=== PATIENT | male | born 1960 | race Caucasian/White ===

== ENCOUNTER → 2018-01-01 | Day surgery (SDC) | payer OTHER ==
[~2018-01-01] VITALS: Ht 188 cm; Wt 101.7 kg
[~2018-01-01] MED LIST: ACETAMINOPHEN 1000 MG/100 ML 100 ML IV SCH; AMLO10 PO; ASPI1TAB57 PO; BACITRACIN TOP OINT 15 GM TUBE ONE; BUPIVACAINE/EPINEPHRINE 0.5% PF 30 ML VIAL ONE; CARV12.5 PO; CHLORHEXIDINE GLUCONATE 2 % 1 PACK (2 CLOTHS) TOPICAL PRN; DEXAMETHASONE SOD PHOS 4 MG/ML VIAL IV ONE; DO NOT ADM ANY ANTICOAGULANT DRUGS PRN; GLYCOPYRROLATE 1 MG/5 ML SYRINGE IV PUSH ONE; INSULIN HUMAN REGULAR 1,000 UNITS/10 ML VIAL SQ PRN; KETOROLAC TROMETHAMINE 30 MG/ML (IVP) VIAL IV PUSH ONE; KETOROLAC TROMETHAMINE 30 MG/ML (IVP) VIAL ONE; LACTATED RINGER'S 1000 ML IV PRN; LIDOCAINE 1%/EPINEPHrine 1:100,000 SOLN 20 ML VIAL ONE; LIDOCAINE HCL 1% PF 5 ML SYRINGE OTHER ONE; MEPERIDINE HCL 50 MG/ML VIAL ONE; METOPROLOL TARTRATE 25 MG TAB PO PRN; MIDAZOLAM HCL 2 MG/2 ML VIAL ONE; MORPHINE SULFATE 4 MG/ML INJ IV PUSH PRN; NEOSTIGMINE 5 MG/5 ML SYRINGE IV PUSH ONE; ONDANSETRON HCL 4 MG/2 ML VIAL IV PUSH ONE; ONDANSETRON HCL 4 MG/2 ML VIAL IV PUSH PRN; POVIDONE IODINE 5% (ANTISEPSIS KIT) 4 APPLICATIONS EACH NARE PRN; PROPOFOL 200 MG/20 ML AMP IV ONE; PROPOFOL 500 MG/50 ML INJ 50 ML ONE; ROCURONIUM INJ 50 MG/5 ML SYRINGE IV PUSH ONE; SODIUM BICARBONATE 8.4% INJ 0 ML ONE; SODIUM CHLORID 0.9% 500 ML IV PRN; VITATAB56 PO; ceFAZolin 2 GM PREMIX 50 ML IV SCH; oxyCODONE/ACETAMINOPHEN 5 MG/325 MG TAB PO PRN
[2018-01-01 11:15] VITALS: BP 134/79; PULSE 61; RESP 18; TEMP 97.2; O2SAT 97
--- NOTE | 2018-01-01 16:33 | MP ---
cc: Migel Sebastian MD DATE OF OPERATION: 01/01/2018 PREOPERATIVE DIAGNOSIS: Large lipoma, left upper back. POSTOPERATIVE DIAGNOSIS: Large lipoma, left upper back. PROCEDURE PERFORMED: Excision of large lipoma, left upper back. SURGEON: Migel Sebastian MD [employer]GER: Milly Evans, MS3 ANESTHESIA: General. OPERATIVE FINDINGS AND PROCEDURE: The patient was brought to the operating room, and after satisfactory general endotracheal anesthesia was obtained, the patient was placed prone on the operating table by proper positioning. The upper back was prepped and draped in the usual sterile fashion, and 0.5% Marcaine with epinephrine was used to infiltrate the skin for local anesthesia. A transverse skin incision was made in Ricardo's lines and carried down sharply through the subcutaneous tissue with the cautery being used for hemostasis. The incision was deepened to the lipoma where it was identified easily and dissected free, mostly by blunt dissection as well as use of the cautery. It was then passed for permanent pathology and had a total diameter of 7 x 6 cm. Hemostasis was strictly assured after which, the subcutaneous tissue was closed with interrupted 3-0 Vicryl suture and the skin closed with interrupted 4-0 PDS subcuticular stitches. Steri-Strips and a sterile dressing were placed. The patient was taken from the operating room in satisfactory condition, having tolerated the procedure without problem. ESTIMATED BLOOD LOSS: Less than 10 mL. COUNTS: The instrument, sponge, needle counts were reported to be correct x 2 at the end of the procedure. MD MICHELLE Jewell/SB , 03:50 PM , 04:31 PM
== END | disposition home or self-care (01) ==
LOC: HSDC 05:58
PROVIDERS: ATTEND Surgery
DX: D17.1 Benign lipomatous neoplasm of skin and subcutaneous tissue of trunk (principal); I10 Essential (primary) hypertension
CPT/HCPCS: 00300; 21931; 88304; J0131; J0690; J1100; J1885; J2175; J2250; J2405; J2710; J3010; J7120